=== PATIENT | female | born 1970 | race Caucasian/White ===

== ENCOUNTER 2016-11-17 07:04 | Emergency (ER) | payer BC ==
[~2016-11-17] VITALS: Ht 162.6 cm; Wt 57.2 kg
[2016-11-17] MEDS ORDERED: NKM (07:17)
[2016-11-17 07:28] VITALS: BP 139/84
[2016-11-17] MEDS ORDERED: Famotidine 20 MG/ 2ML VIAL IVP ONE (07:45)
--- NOTE | 2016-11-17 07:56 | Emergency Room Report ---
History of Present Illness General Chief Complaint: Abdominal Pain Source: Patient Present Illness HPI Patient presents with vomiting for 3 days and unable to keep anything down. She vomited some dark material. She states it tasted like metal. She feels weak and shaky at this time. She denies any fevers. She denies diarrhea. There was a slight sore throat with the vomiting. Epigastric discomfort is less than suprapubic pain, burning, some radiation into chest. She feels dehydrated. Her last period was 2 weeks ago she's had suprapubic pain - now 8/10, aching pressure. Was scheduled to have an ultrasound also this morning. She drinks alcohol on the weekends. She is undergoing tremendous amount of stress as her has prostate cancer. In addition to that she had difficulty with her house. She smokes THC and this helps. No treatment for anxiety or stress. Has 3 yo at home. There was difficulty getting . She doesn't believe she is now. Occasional headache. No change vision. No chest pain, palpitations. 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 Period: 4 weeks ago Now: No Reviewed Nursing Documentation: PMH: Agreed, PSxH: Agreed Review of Systems All Other Systems: negative except mentioned in HPI Physical Exam Vital Signs Date Time Temp Pulse Resp B/P Pulse Ox O2 Delivery O2 Flow Rate FiO2 11/17/16 07:10 98.1 108 16 139/84 97 Room Air Sp02 EP Interpretation: reviewed, normal General Appearance: well appearing, no apparent distress, GCS 15 Head: normocephalic, atraumatic Eyes: bilateral eye PERRL, bilateral eye normal inspection ENT: moist mucus membranes Neck: supple Respiratory: lungs clear, normal breath sounds Cardiovascular #1: regular rate, rhythm Cardiovascular #2: 2+ radial (R) Gastrointestinal: normal inspection, normal bowel sounds, no mass, non- distended, no guarding, no rebound, tenderness - epigastric Musculoskeletal: back normal, gait/station normal, normal range of motion Neurologic: alert, oriented x3, grossly normal - slight tremor Psychiatric: anxious Skin: normal inspection, warm/dry Medical Decision Making Diagnostic Impression: Primary Impression: Gastritis Qualified Codes: K29.01 - Acute gastritis with bleeding Additional Impressions: Fibroid Qualified Codes: D25.9 - Leiomyoma of uterus, unspecified Dehydration ER Course Patient presents with 3 days of vomiting and now with possible blood. DDx: gastritis, PUD, Jasmyne Calloway tear, food poisoning, withdrawal, anxiety, electrolyte abnormalities, dehydration amongst others. Bleeding and suprapubic pain consider fibroid, , UTI. Evaluation with labs, ultrasound. Treatment with IV hydration, Zofran and Pepcid. She declined other pain medicine. EKG below. Labs remarkable for normal WBC, H/H (actually slight high), elevated LFTs. Ultrasound with fibroids. Discussed stress, gastritis and fibroids. Improved with treatment. Patient stable for outpatient observation and treatment Laboratory Tests Test 11/17/16 07:50 11/17/16 09:10 White Blood Count 6.7 K/UL (4.8-10.8) Red Blood Count 4.97 M/UL (4.20-5.40) Hemoglobin 16.0 G/DL (12.0-16.0) Hematocrit 48.8 % (37.0-47.0) H Mean Corpuscular Volume 98 FL (80-99) Mean Corpuscular Hemoglobin 32.1 PG (27.0-31.0) H Mean Corpuscular Hemoglobin Concent 32.7 G/DL (32.0-36.0) Red Cell Distribution Width 12.1 % (11.6-14.8) Platelet Count 196 K/UL (150-450) Mean Platelet Volume 6.0 FL (6.5-10.1) L Neutrophils (%) (Auto) 69.1 % (45.0-75.0) Lymphocytes (%) (Auto) 18.4 % (20.0-45.0) L Monocytes (%) (Auto) 9.8 % (1.0-10.0) Eosinophils (%) (Auto) 1.3 % (0.0-3.0) Basophils (%) (Auto) 1.4 % (0.0-2.0) Prothrombin Time 11.8 SEC (9.30-11.50) H Prothrombin Time INR 1.1 (0.9-1.1) PTT 29 SEC (23-33) Sodium Level 141 mEQ/L (135-145) Potassium Level 3.9 mEQ/L (3.4-4.9) Chloride Level 97 mEQ/L (98-107) L Carbon Dioxide Level 27 mEQ/L (20-30) Anion Gap 17 (5-15) H Blood Urea Nitrogen 12 mg/dL (7-23) Creatinine 0.8 mg/dL (0.5-0.9) Estimate Glomerular Filtration Rate > 60 mL/min (>60) Glucose Level 95 mg/dL (74-106) Calcium Level 9.6 mg/dL (8.6-10.2) Total Bilirubin 0.6 mg/dL (0.0-1.2) Aspartate Amino Transferase (AST) 53 U/L (5-40) H Alanine Aminotransferase (ALT) 39 U/L (3-33) H Alkaline Phosphatase 88 U/L (35-104) Total Protein 7.7 g/dL (6.6-8.7) Albumin 4.8 g/dL (3.5-5.2) Globulin 2.9 g/dL Albumin/Globulin Ratio 1.6 (1.0-2.7) Lipase 23 U/L (< 60) Urine Color Yellow Urine Appearance Clear Urine pH 7 (4.5-8.0) Urine Specific [place] 1.015 (1.005-1.035) Urine Protein 1+ (NEGATIVE) H Urine Glucose (UA) Negative (NEGATIVE) Urine Ketones 3+ (NEGATIVE) H Urine Occult Blood 2+ (NEGATIVE) H Urine Nitrite Negative (NEGATIVE) Urine Bilirubin Negative (NEGATIVE) Urine Urobilinogen 1 MG/DL (0.0-1.0) H Urine Leukocyte Esterase Negative (NEGATIVE) Urine RBC 2-4 /HPF (0 - 2) H Urine WBC 0-2 /HPF (0 - 2) Urine Squamous Epithelial Cells Moderate /LPF (NONE/OCC) H Urine Bacteria Few /HPF (NONE) Urine Mucus Moderate /LPF (NONE/OCC) H Urine HCG, Qualitative Negative Rhythm Strip Diag. Results EP Interpretation: yes Rhythm: NSR, no PVC's, no ectopy CT/MRI/US Diagnostic Results CT/MRI/US Diagnostic Results : Imaging Test Ordered: u/s Impression fibroids Last Vital Signs Date Time Temp Pulse Resp B/P Pulse Ox O2 Delivery O2 Flow Rate FiO2 11/17/16 14:00 98.1 16 139/84 97 Room Air 11/17/16 12:00 89 Status: improved Disposition: HOME, SELF-CARE Condition: Improved Scripts Famotidine (PEPCID) 20 Mg Tablet 20 MG ORAL DAILY, #30 TAB 0 Refills Prov: Clark Cornelius M.D. 11/17/16 Tramadol Hcl* (ULTRAM*) 50 Mg Tablet 50 MG ORAL Q6H Y for For Pain, #6 TAB 0 Refills Prov: Clark Cornelius M.D. 11/17/16 Lorazepam* (ATIVAN*) 0.5 Mg Tablet 0.5 MG ORAL THREE TIMES A DAY, #6 TAB Prov: Clark Cornelius M.D. 11/17/16 Ondansetron Odt* (ZOFRAN ODT*) 4 Mg Tab.rapdis 4 MG ORAL Q8HR Y for Nausea & Vomiting, #6 TAB 0 Refills Prov: Clark Cornelius M.D. 11/17/16 Referrals: NOT CHOSEN PARUL/,REFERRING (PCP) Clark Cornelius M.D. Nov 17, 2016 07:56
[2016-11-17 08:15] LABS: BASOPHILS % (AUTO) 1.4 % (0.0-2.0); EOSINOPHILS % (AUTO) 1.3 % (0.0-3.0); LYMPHOCYTES % (AUTO) 18.4 % (20.0-45.0); MEAN CORPUSCULAR HEMOGLOBIN 32.1 PG (27.0-31.0); MEAN CORPUSCULAR HGB CONC 32.7 G/DL (32.0-36.0); MEAN CORPUSCULAR VOLUME 98 FL (80-99); MONOCYTES % (AUTO) 9.8 % (1.0-10.0); NEUTROPHILS % (AUTO) 69.1 % (45.0-75.0); PLATELET COUNT 196 K/UL (150-450); RED BLOOD COUNT 4.97 M/UL (4.20-5.40); RED CELL DISTRIBUTION WIDTH 12.1 % (11.6-14.8); WHITE BLOOD COUNT 6.7 K/UL (4.8-10.8)
[2016-11-17] MEDS ORDERED: LORazepam Inj 2mg/ml 1ml IV ONE (08:15)
[2016-11-17 08:26] LABS: ALANINE AMINOTRANSFERASE 39 U/L (3-33); ALBUMIN/GLOBULIN RATIO 1.6 (1.0-2.7); ANION GAP 17 (5-15); ASPARTATE AMINO TRANSFERASE 53 U/L (5-40); CALCIUM 9.6 mg/dL (8.6-10.2); CARBON DIOXIDE 27 mEQ/L (20-30); CHLORIDE 97 mEQ/L (98-107); CREATININE 0.8 mg/dL (0.5-0.9); GLOMERULAR FILTRATION RATE > 60 mL/min (>60); HEMOLYSIS 6; LIPASE 23 U/L (< 60); POTASSIUM 3.9 mEQ/L (3.4-4.9); SODIUM 141 mEQ/L (135-145); TOTAL PROTEIN 7.7 g/dL (6.6-8.7)
[2016-11-17 08:34] LABS: INR 1.1 (0.9-1.1); PROTHROMBIN TIME 11.8 SEC (9.30-11.50)
[2016-11-17 09:34] LABS: APPEARANCE,URINE CLEAR; KETONES,URINE 3+ (NEGATIVE); LEUKOCYTE ESTERASE ,URINE NEGATIVE (NEGATIVE); NITRITE,URINE NEGATIVE (NEGATIVE); PH,URINE 7 (4.5-8.0); PROTEIN,URINE 1+ (NEGATIVE); UROBILINOGEN,URINE 1 MG/DL (0.0-1.0)
[2016-11-17 09:51] LABS: BACTERIA,URINE FEW /HPF; SQUAMOUS EPITHELIAL CELL,UR MODERATE /LPF (NONE/OCC); WBC,URINE 0-2 /HPF (0 - 2)
[2016-11-17 09:52] LABS: MUCUS,URINE MODERATE /LPF (NONE/OCC)
[2016-11-17 12:00] VITALS: BP 130/79
--- NOTE | 2016-11-17 12:17 | Diagnostic Imaging Report ---
Indication:Lower abdominal and pelvic pain Technique: Grayscale and duplex Doppler imaging of the pelvis performed utilizing a transabdominal scan and endovaginal scan. Comparison: None Findings: There is a mass in the anterior uterine body measuring 2.8 x 2.2 cm with a fibroid. Other smaller fibroids are noted for example 1.3 CM lesion in a 1.0 cm lesion in the anterior uterine fundus. Endometrium is obscured. The ovaries are demonstrated and unremarkable. No free fluid seen. Uterus measures 7.4 x 5.6 x 4.7 CM. Right ovary 3 x 1 CM. Left ovary 2.5 x 2.2 x 1.0 CM. Impression: Multiple uterine fibroids. Endometrium not adequately seen. Unremarkable ovaries
[2016-11-17] MEDS ORDERED: TRAMADOL HCL50 MG ORAL (12:28)
[2016-11-17] MEDS ORDERED: ATIVAN0.5 MG ORAL (12:28)
[2016-11-17] MEDS ORDERED: ZOFRAN ODT4 MG ORAL (12:28)
[2016-11-17] MEDS ORDERED: PEPCID20 MG ORAL (12:29)
[2016-11-17 14:00] VITALS: BP 139/84
== END 2016-11-17 14:30 | disposition home or self-care (01) ==
LOC: EMR 07:54
DX: K29.70 Gastritis, unspecified, without bleeding (principal); E86.0 Dehydration; D25.9 Leiomyoma of uterus, unspecified; R53.1 Weakness; Z88.6 Allergy status to analgesic agent; F12.90 Cannabis use, unspecified, uncomplicated
CPT/HCPCS: 36415; 76830; 76856; 80053; 81003; 81025; 83690; 85025; 85610; 85730; 96360; 96361; 99284; J2405; S0028